=== PATIENT | female | born 1955 | race Caucasian/White ===

== ENCOUNTER 2021-05-11 17:09 | Outpatient (CLI) | payer MEDICARE, OTHER | END 2021-05-11 17:10 | disposition critical access hospital (66) | LOC: EMS 17:09 | DX: R41.82 Altered mental status, unspecified (principal) | CPT/HCPCS: A0425; A0427 ==

== ENCOUNTER 2021-05-11 17:30 | Emergency (ER) | payer MEDICARE, OTHER ==
[2021-05-11] MEDS ORDERED: SODIUM CHLORIDE 0.9% 1,000 ML IV STA (17:39)
--- NOTE | 2021-05-11 17:44 | ED Physician Documentation ---
PD HPI ALTERED MENTAL STATUS - Stated complaint Stated Complaint: AMS - History obtained from History obtained from: EMS - Additional information Additional information: Reportedly had some sort of episode last night where she could not get off the toilet. Then subsequently went to bed alone and she has not been seen since last night. Was found by family on the floor in her bedroom this evening less responsive than normal. Blood sugar was around 290 for EMS. There was no report of trauma or concern for drug/alcohol use. Patient unable to give a history for the most part due to altered mental status. arrived a few minutes after initial evaluation and gave further history. She had been vomiting all night. No specific complaints of headache. She has a history of diabetes and diabetic nephropathy albeit never bad enough that she needed to see a site supervisor. Review of Systems Unable to obtain: Confused PD PAST MEDICAL HISTORY - Present Medications Home Medications: Ambulatory Orders Medication Instructions Recorded Confirmed Atorvastatin [Lipitor] 20 mg ORAL HS 05/11/21 05/11/21 Gabapentin [Neurontin] 300 mg PO BID 05/11/21 05/11/21 Lisinopril [Zestril] 10 mg PO DAILY 05/11/21 05/11/21 Sitagliptin Phos/Metformin HCl 1 each PO BID 05/11/21 05/11/21 [Janumet Xr 50-1,000 mg Tablet] - Allergies Allergies/Adverse Reactions: Allergies Allergy/AdvReac Type Severity Reaction Status Date / Time No Known Drug Allergies Allergy Verified 05/11/21 18:29 PD ED PE NORMAL - Vitals Vital signs reviewed: Yes - General General: Other (She opens her eyes to verbal stimulus and is quite confused.) - HEENT HEENT: Other (Dilated pupils, symmetric, Very dry mucous membranes) - Neck Neck: Supple, no meningeal sign, No bony TTP - Cardiac Cardiac: RRR, No murmur - Respiratory Respiratory: No respiratory distress, Clear bilaterally - Abdomen Abdomen: Normal bowel sounds, Soft, Non tender - Female Female : Other (Pelvic organ/vaginal prolapse noted by RN during Castellon placement, easily reducible.) - Back Back: No CVA TTP, No spinal TTP - Derm Derm: Normal color, Warm and dry - Extremities Extremities: No deformity, No tenderness to palpate, Normal ROM s pain - Neuro Eye Opening: To Voice Motor: Obeys Commands (Follows commands with strength appropriate to her mental status in all 4 extremities) Verbal: Confused GCS Score: 13 Results - Vitals Vitals: Vital Signs - 24 hr 05/11/21 05/11/21 05/11/21 17:49 18:15 18:30 Temperature 29 C L 29.2 C L 29.3 C L Heart Rate 82 88 81 Respiratory 18 17 16 Rate Blood Pressure 79/53 L 102/59 L 72/40 L O2 Saturation 100 100 91 L 05/11/21 05/11/21 05/11/21 18:55 19:19 19:36 Temperature 29.7 C L 30.1 C L 39.7 C H Heart Rate 114 H 67 106 H Respiratory 14 14 14 Rate Blood Pressure 82/51 L 112/64 82/51 L O2 Saturation 100 100 100 05/11/21 05/11/21 05/11/21 19:37 20:09 20:30 Temperature 30.2 C L 30.9 C L 31.5 C L Heart Rate 67 76 75 Respiratory 12 14 13 Rate Blood Pressure 112/55 L 115/62 106/57 L O2 Saturation 100 100 100 Oxygen O2 Source Nasal cannula - EKG (time done) 1930 Rate: Rate (enter#) (68) Rhythm: NSR [place]: Normal Intervals: Prolonged [place], Prolonged QT QRS: Low voltage Ischemia: Normal ST segments - Labs Labs: Laboratory Tests 05/11/21 05/11/21 05/11/21 17:45 17:45 17:45 WBC 22.0 H RBC 4.04 L Hgb 11.4 L Hct 39.7 MCV 98.3 MCH 28.2 MCHC 28.7 L RDW 13.2 Plt Count 368 MPV 10.1 Neut # (Auto) 16.9 H Lymph # (Auto) 3.1 [place] # (Auto) 1.5 H Eos # (Auto) 0.0 Baso # (Auto) 0.1 Absolute Nucleated RBC 0.00 Band Neuts % (Manual) Not Reportable Abnorm Lymph % (Manual) Not Reportable Nucleated RBC % 0.0 Neutrophils # (Manual) Not Reportable Lymphocytes # (Manual) Not Reportable Monocytes # (Manual) Not Reportable Eosinophils # (Manual) Not Reportable Basophils # (Manual) Not Reportable Differential Comment MANUAL=AUTO DIFF Manual Slide Review Indicated Platelet Estimate NORMAL (130-450,000) Platelet Morphology NORMAL APPEARANCE RBC Morph Micro Appear NORMAL APPEARANCE PT INR APTT Bld Gas Analysis Time Sample Site ABG pH ABG pCO2 ABG pO2 ABG HCO3 ABG Total CO2 ABG O2 Saturation ABG Base Excess [place] Test VBG pH VBG pCO2 VBG pO2 VBG HCO3 VBG Total CO2 VBG O2 Saturation VBG Base Excess O2 Delivery Device O2 Liters/Min Sodium 140 Potassium 4.7 Chloride 93 L Carbon Dioxide 6 L* Anion Gap 41.0 H BUN 78 H Creatinine 6.1 H Estimated GFR (MDRD) 7 L Glucose 325 H Lactic Acid > 10.0 H* Calcium 9.0 Total Bilirubin 1.2 H AST 27 ALT 20 Alkaline Phosphatase 66 Total Creatine Kinase 132 Total Protein 7.5 Albumin 3.6 Globulin 3.9 Albumin/Globulin Ratio 0.9 L TSH Urine Color Urine Clarity Urine pH Ur Specific [place] Urine Protein Urine Glucose (UA) Urine Ketones Urine Occult Blood Urine Nitrite Urine Bilirubin Urine Urobilinogen Ur Leukocyte Esterase Urine RBC Urine WBC Urine WBC Clumps Ur Epithelial Cells Ur Squamous Epith Cells Urine Bacteria Ur Microscopic Review Urine Culture Comments Nasal Adenovirus (PCR) Nasal B. parapertussis DNA (PCR) Nasal Coronavir 229E PCR Nasal Coronavir HKU1 PCR Nasal Coronavir NL63 PCR Nasal Coronavir OC43 PCR Nasal Enterovir/Rhinovir PCR Nasal Influenza B PCR Nasal Influenza A PCR Nasal Parainfluen 1 PCR Nasal Parainfluen 2 PCR Nasal Parainfluen 3 PCR Nasal Parainfluen 4 PCR Nasal RSV (PCR) Nasal B.pertussis DNA PCR Nasal C.pneumoniae (PCR) Garth Human Metapneumo PCR Nasal M.pneumoniae (PCR) Nasal SARS-CoV-2 (PCR) Salicylates < 6.0 Urine Opiates Screen Ur Oxycodone Screen Urine Methadone Screen Ur Propoxyphene Screen Acetaminophen < 10 L Ur Barbiturates Screen Ur Tricyclics Screen Ur Phencyclidine Scrn Ur Amphetamine Screen U Methamphetamines Scrn U Benzodiazepines Scrn Urine Cocaine Screen U Cannabinoids Screen Ethyl Alcohol < 5.0 05/11/21 05/11/21 05/11/21 17:45 17:45 17:45 WBC RBC Hgb Hct MCV MCH MCHC RDW Plt Count MPV Neut # (Auto) Lymph # (Auto) [place] # (Auto) Eos # (Auto) Baso # (Auto) Absolute Nucleated RBC Band Neuts % (Manual) Abnorm Lymph % (Manual) Nucleated RBC % Neutrophils # (Manual) Lymphocytes # (Manual) Monocytes # (Manual) Eosinophils # (Manual) Basophils # (Manual) Differential Comment Manual Slide Review Platelet Estimate Platelet Morphology RBC Morph Micro Appear PT INR APTT Bld Gas Analysis Time Sample Site ABG pH ABG pCO2 ABG pO2 ABG HCO3 ABG Total CO2 ABG O2 Saturation ABG Base Excess [place] Test VBG pH 6.636 L VBG pCO2 36.1 L VBG pO2 85.2 H VBG HCO3 3.8 L VBG Total CO2 4.9 L VBG O2 Saturation 90.4 H VBG Base Excess -33.4 L O2 Delivery Device O2 Liters/Min Sodium Potassium Chloride Carbon Dioxide Anion Gap BUN Creatinine Estimated GFR (MDRD) Glucose Lactic Acid Calcium Total Bilirubin AST ALT Alkaline Phosphatase Total Creatine Kinase Total Protein Albumin Globulin Albumin/Globulin Ratio TSH 1.63 Urine Color YELLOW Urine Clarity HAZY Urine pH 6.0 Ur Specific [place] 1.020 Urine Protein 30 H Urine Glucose (UA) NEGATIVE Urine Ketones 15 H Urine Occult Blood SMALL H Urine Nitrite NEGATIVE Urine Bilirubin NEGATIVE Urine Urobilinogen 0.2 (NORMAL) Ur Leukocyte Esterase LARGE H Urine RBC TNTC H Urine WBC >25 H Urine WBC Clumps PRESENT Ur Epithelial Cells RARE Transitional Ur Squamous Epith Cells NONE SEEN Urine Bacteria Many H Ur Microscopic Review INDICATED Urine Culture Comments INDICATED Nasal Adenovirus (PCR) Nasal B. parapertussis DNA (PCR) Nasal Coronavir 229E PCR Nasal Coronavir HKU1 PCR Nasal Coronavir NL63 PCR Nasal Coronavir OC43 PCR Nasal Enterovir/Rhinovir PCR Nasal Influenza B PCR Nasal Influenza A PCR Nasal Parainfluen 1 PCR Nasal Parainfluen 2 PCR Nasal Parainfluen 3 PCR Nasal Parainfluen 4 PCR Nasal RSV (PCR) Nasal B.pertussis DNA PCR Nasal C.pneumoniae (PCR) Garth Human Metapneumo PCR Nasal M.pneumoniae (PCR) Nasal SARS-CoV-2 (PCR) Salicylates Urine Opiates Screen NEGATIVE Ur Oxycodone Screen NEGATIVE Urine Methadone Screen NEGATIVE Ur Propoxyphene Screen NEGATIVE Acetaminophen Ur Barbiturates Screen NEGATIVE Ur Tricyclics Screen NEGATIVE Ur Phencyclidine Scrn NEGATIVE Ur Amphetamine Screen NEGATIVE U Methamphetamines Scrn NEGATIVE U Benzodiazepines Scrn NEGATIVE Urine Cocaine Screen NEGATIVE U Cannabinoids Screen NEGATIVE Ethyl Alcohol 05/11/21 05/11/21 05/11/21 17:47 18:45 20:15 WBC RBC Hgb Hct MCV MCH MCHC RDW Plt Count MPV Neut # (Auto) Lymph # (Auto) [place] # (Auto) Eos # (Auto) Baso # (Auto) Absolute Nucleated RBC Band Neuts % (Manual) Abnorm Lymph % (Manual) Nucleated RBC % Neutrophils # (Manual) Lymphocytes # (Manual) Monocytes # (Manual) Eosinophils # (Manual) Basophils # (Manual) Differential Comment Manual Slide Review Platelet Estimate Platelet Morphology RBC Morph Micro Appear PT 13.1 H INR 1.2 APTT 31.9 Bld Gas Analysis Time 2019 Sample Site A-LINE ABG pH 6.74 L* ABG pCO2 25 L* ABG pO2 233 H* ABG HCO3 3.3 L ABG Total CO2 4.0 L* ABG O2 Saturation 99 H ABG Base Excess -31.2 L [place] Test NOT APPLICABLE VBG pH VBG pCO2 VBG pO2 VBG HCO3 VBG Total CO2 VBG O2 Saturation VBG Base Excess O2 Delivery Device NASAL CANNULA O2 Liters/Min 4.00 Sodium Potassium Chloride Carbon Dioxide Anion Gap BUN Creatinine Estimated GFR (MDRD) Glucose Lactic Acid Calcium Total Bilirubin AST ALT Alkaline Phosphatase Total Creatine Kinase Total Protein Albumin Globulin Albumin/Globulin Ratio TSH Urine Color Urine Clarity Urine pH Ur Specific [place] Urine Protein Urine Glucose (UA) Urine Ketones Urine Occult Blood Urine Nitrite Urine Bilirubin Urine Urobilinogen Ur Leukocyte Esterase Urine RBC Urine WBC Urine WBC Clumps Ur Epithelial Cells Ur Squamous Epith Cells Urine Bacteria Ur Microscopic Review Urine Culture Comments Nasal Adenovirus (PCR) NOT DETECTED Nasal B. parapertussis DNA (PCR) NOT DETECTED Nasal Coronavir 229E PCR NOT DETECTED Nasal Coronavir HKU1 PCR NOT DETECTED Nasal Coronavir NL63 PCR NOT DETECTED Nasal Coronavir OC43 PCR NOT DETECTED Nasal Enterovir/Rhinovir PCR NOT DETECTED Nasal Influenza B PCR NOT DETECTED Nasal Influenza A PCR NOT DETECTED Nasal Parainfluen 1 PCR NOT DETECTED Nasal Parainfluen 2 PCR NOT DETECTED Nasal Parainfluen 3 PCR NOT DETECTED Nasal Parainfluen 4 PCR NOT DETECTED Nasal RSV (PCR) NOT DETECTED Nasal B.pertussis DNA PCR NOT DETECTED Nasal C.pneumoniae (PCR) NOT DETECTED Garth Human Metapneumo PCR NOT DETECTED Nasal M.pneumoniae (PCR) NOT DETECTED Nasal SARS-CoV-2 (PCR) NOT DETECTED Salicylates Urine Opiates Screen Ur Oxycodone Screen Urine Methadone Screen Ur Propoxyphene Screen Acetaminophen Ur Barbiturates Screen Ur Tricyclics Screen Ur Phencyclidine Scrn Ur Amphetamine Screen U Methamphetamines Scrn U Benzodiazepines Scrn Urine Cocaine Screen U Cannabinoids Screen Ethyl Alcohol - Rads (name of study) CT of the head Radiology: EMP read contemporaneously (NAD) Chest x-ray single view Radiology: EMP read contemporaneously Post line chest x-ray Radiology: EMP read contemporaneously (Right IJ CVC in appropriate position with tip over the distal SVC/cavoatrial junction; No pneumothorax) CT KUB Radiology: EMP read contemporaneously (KUB shows moderate hydronephrosis and hydroureter probably secondary to a 8 mm proximal ureterolith with also nonobstructing calcifications in the left pelvis and right renal, hepatic steatosis and left adrenal mass suggestive of adenoma) Procedures - General procedure General procedure: A right radial arterial line was placed after full prep using real-time ultrasound guidance without issue. Sutured into place with 4-0 nylon. Transduces well. Matches with BP cuff. - Central Line Central Line Preparation: Consent Obtained (verbal from ), Time out completed, Ultrasound used, Sterile prep and drape Central line location: Right IJ Central line type: Triple lumen Central line aftercare: Chlorhexidine disc placed, Secured, Placement confirmed, No pneumothorax, No complications, Bundle checklist complete, Pt tolerated well PD MEDICAL DECISION MAKING - ED course ED course: 65-year-old woman with history of diabetes presents with an acute illness starting yesterday. Was down all night and is now altered, hypotensive, hypothermic. She was attended to immediately and labs were drawn and she was given IV fluids. Work-up demonstrates severe septic shock with lactate greater than 10 and severe acute renal failure and acidosis with evidence of UTI. CT of the head and chest x-ray were negative and this was followed with a abdominal CT to rule out obstructive uropathy. A central line was placed and she was given greater than 30 mL/kg of crystalloid and broad-spectrum IV antibiotics co nsisting of cefepime, vancomycin, and Flagyl. Sofa score 10 points; [place] 2 score 26, both of these scores give her approximately 50% mortality. After her blood gas results, she was started on a bicarb drip, 150 mEq of sodium bicarb in D5 at a rate of 333 mL/h. A right radial art line was placed with full sterile prep which was transduced and ABG drawn. Multiple calls were placed to multiple facilities for ICU transfer capable of urology and interventional radiology consultation for likely nephrostomy. Eventually she was accepted to [facility] by Dr. Denzel Pittman and cobras were completed and she will be flown there given the critical nature of her illness. - Critical Care Time(min): 70 Time Includes: Direct patient care, Review records, Reassess patient, Document care, Coordinate care, Medical consult, Family consult for tx dec ( and son at bedside through most of the resuscitation.) Data interpretation: Labs, Pulse ox, ABG, CXR Procedures included in critical care time: Peripheral IV, Blood draw Procedures excluded from critical care time: Central IV, Arterial cannulation, EKG Departure - Departure Disposition: 02 Transfer Acute Care Hosp Clinical Impression: Septic shock, Obstructive uropathy, Acidosis UTI (urinary tract infection) Qualifiers: Urinary tract infection type: acute pyelonephritis Qualified Code(s): N10 - Acute pyelonephritis Altered mental status Qualifiers: Altered mental status type: delirium Qualified Code(s): R41.0 - Disorientation, unspecified ARF (acute renal failure) Qualifiers: Acute renal failure type: unspecified Qualified Code(s): N17.9 - Acute kidney failure, unspecified Hypothermia Qualifiers: Encounter type: initial encounter Qualified Code(s): T68.XXXA - Hypothermia, initial encounter Condition: Critical Discharge Date/Time: 05/11/21 21:04
[2021-05-11 17:50] LABS: MUDS CUTOFF CONCENTRATIONS CUTOFF CONC BELOW:
[2021-05-11 17:53] LABS: BASOPHILS # (AUTO) 0.1 10^3/uL (0.0-0.1); BASOPHILS % (AUTO) 0.4 %; EOSINOPHILS % (AUTO) 0.2 %; HCT - HEMATOCRIT 39.7 % (37.0-47.0); HGB - HEMOGLOBIN 11.4 g/dL (12.0-16.0); LYMPHOCYTES # (AUTO) 3.1 10^3/uL (1.5-3.5); LYMPHOCYTES % (AUTO) 14.1 %; MEAN CORPUSCULAR HEMOGLOBIN 28.2 pg (27.0-31.0); MEAN CORPUSCULAR HGB CONC 28.7 g/dL (32.0-36.0); MEAN CORPUSCULAR VOLUME 98.3 fL (81.0-99.0); MEAN PLATELET VOLUME 10.1 fL (7.9-10.8); MONOCYTES # (AUTO) 1.5 10^3/uL (0.0-1.0); MONOCYTES % (AUTO) 6.9 %; NEUTROPHILS # (AUTO) 16.9 10^3/uL (1.5-6.6); NEUTROPHILS % (AUTO) 76.6 %; PLT - PLATELET COUNT 368 10^3/uL (130-450); RED BLOOD COUNT 4.04 10^6/uL (4.20-5.40); RED CELL DISTRIBUTION WIDTH 13.2 % (12.0-15.0)
[2021-05-11 17:54] LABS: BILIRUBIN,URINE NEGATIVE (NEGATIVE); GLUCOSE, URINE (UA) NEGATIVE (NEGATIVE); KETONES,URINE (UA) 15 mg/dL (NEGATIVE); LEUKOCYTE ESTERASE, URINE LARGE (NEGATIVE); NITRITE,URINE NEGATIVE (NEGATIVE); OCCULT BLOOD,URINE SMALL (NEGATIVE); PROTEIN,URINE 30 mg/dL (NEGATIVE); UROBILINOGEN,URINE 0.2 (NORMAL) E.U./dL (NORMAL)
[2021-05-11 17:58] LABS: SLIDE REVIEW? Indicated
[2021-05-11 17:59] LABS: CLARITY,URINE HAZY (CLEAR)
[2021-05-11 18:04] LABS: AMPHETAMINE SCREEN,URINE NEGATIVE (NEGATIVE); BARBITURATE SCREEN,UR NEGATIVE (NEGATIVE); BENZODIAZEPINES SCREEN, URINE NEGATIVE (NEGATIVE); COCAINE SCREEN URINE NEGATIVE (NEGATIVE); METHADONE SCREEN, URINE NEGATIVE (NEGATIVE); METHAMPHETAMINES SCREEN, URINE NEGATIVE (NEGATIVE); OPIATE SCREEN, URINE NEGATIVE (NEGATIVE); OXYCODONE SCREEN, URINE NEGATIVE (NEGATIVE); PROPOXYPHENE SCREEN, URINE NEGATIVE (NEGATIVE); THC CANNABINOID SCREEN, URINE NEGATIVE (NEGATIVE); TRICYCLIC ANTIDEPRESSANT,URINE NEGATIVE (NEGATIVE)
[2021-05-11 18:08] LABS: LACTIC ACID, VENOUS > 10.0 mmol/L (0.5-2.2)
[2021-05-11 18:09] LABS: ACETAMINOPHEN < 10 ug/mL (10-30); ALBUMIN 3.6 g/dL (3.2-5.5); ALBUMIN/GLOBULIN RATIO 0.9 (1.0-2.2); ALKALINE PHOSPHATASE 66 IU/L (42-121); ALT ALANINE AMINOTRANSFERASE 20 IU/L (10-60); AST ASPARTATE AMINOTRANSFERASE 27 IU/L (10-42); BILIRUBIN,TOTAL 1.2 mg/dL (0.2-1.0); BUN - BLOOD UREA NITROGEN 78 mg/dL (6-20); CHLORIDE 93 mmol/L (101-111); CK- CREATINE KINASE 132 IU/L (22-269); CREATININE 6.1 mg/dL (0.4-1.0); ETOH - ETHANOL < 5.0 mg/dL; GFR - MDRD 7 (>89); GLUCOSE 325 mg/dL (70-100); POTASSIUM 4.7 mmol/L (3.5-5.0); SALICYLATE < 6.0 mg/dL; SODIUM 140 mmol/L (135-145); TOTAL PROTEIN 7.5 g/dL (6.7-8.2)
[2021-05-11 18:10] LABS: CARBON DIOXIDE - CO2 6 mmol/L (21-32)
--- NOTE | 2021-05-11 18:12 | CT Report ---
PROCEDURE: HEAD WO INDICATIONS: ams TECHNIQUE: Noncontrast 4.5 mm thick angled axial sections acquired from the foramen magnum to the vertex. For r adiation dose reduction, the following was used: automated exposure control, adjustment of mA and/or kV according to patient size. COMPARISON: None. FINDINGS: Image quality: Excellent. CSF spaces: Basal cisterns are patent. No extra-axial fluid collections. Ventricles are normal in size and shape. Brain: No midline shift. No intracranial masses or hemorrhage. Massey-white matter interface is norm al. Skull and face: Calvarium and visualized facial bones are intact, without suspicious lesions. Sinuses: Visualized sinuses and mastoids are clear. IMPRESSION: 1. No acute intracranial process. Reviewed by: Deborah Franklin MD on 05/11/2021 6:11 PM [facility] Approved by: Deborah Franklin MD on 05/11/2021 6:11 PM [facility] Station ID: [id number]
--- NOTE | 2021-05-11 18:13 | XRAY Report ---
PROCEDURE: Chest 1 View X-Ray INDICATIONS: ams TECHNIQUE: One view of the chest was acquired. COMPARISON: None FINDINGS: Surgical changes and devices: None. Lungs and pleura: No pleural effusions or pneumothorax. Lungs are clear. Mediastinum: Mediastinal contours appear normal. Heart size is mildly prominent. Bones and chest wall: No suspicious bony lesions. Overlying soft tissues appear unremarkable. IMPRESSION: No acute pulmonary process. Reviewed by: Deborah Franklin MD on 05/11/2021 6:12 PM [facility] Approved by: Deborah Franklin MD on 05/11/2021 6:12 PM [facility] Station ID: [id number]
[2021-05-11] MEDS ORDERED: VANCOMYCIN INJ 1.25 GM in SODIUM CHLORIDE 0.9% 250 ML IV STA (18:15)
[2021-05-11] MEDS ORDERED: LACTATED RINGERS IV STA (18:15)
[2021-05-11] MEDS ORDERED: CEFEPIME 2 GM in SODIUM CHLORIDE 0.9% MINIBAG 100 ML IV STA (18:15)
[2021-05-11] MEDS ORDERED: metroNIDAZOLE 500 MG/100 ML 500 MG/100 ML BAG IV STA (18:15)
[2021-05-11 18:18] LABS: RBC,URINE TNTC /HPF (0-5); WBC CLUMPS,URINE PRESENT; WBC,URINE >25 /HPF (0-5)
[2021-05-11 18:19] LABS: BACTERIA,URINE Many /HPF (None Seen); EPITHELIAL CELLS,UR RARE Transitional /HPF (<= Few); SQUAMOUS EPITHELIAL CELL,UR NONE SEEN (<= Few)
[2021-05-11 18:36] LABS: PLATELET ESTIMATE, MANUAL NORMAL (130-450,000) (NORMAL); PLATELET MORPHOLOGY NORMAL APPEARANCE (NORMAL); RBC MORPHOLOGY (MULTIPLE) NORMAL APPEARANCE (NORMAL)
[2021-05-11 18:37] LABS: DIFFERENTIAL COMMENT MANUAL=AUTO DIFF
[2021-05-11] MEDS ORDERED: VANCOMYCIN 1 GM VIAL ONE (18:44)
[2021-05-11 18:45] LABS: B. PARAPERTUSSIS- RESP PCR PAN NOT DETECTED; B. PERTUSSIS- RESP PCR PANEL NOT DETECTED; C. PNEUMONIAE- RESP PCR PANEL NOT DETECTED; CORONAVIRUS 229E-RESP PCR NOT DETECTED; CORONAVIRUS HKU1-RESP PCR NOT DETECTED; CORONAVIRUS NL63-RESP PCR NOT DETECTED; CORONAVIRUS OC43-RESP PCR NOT DETECTED; HUMAN METAPNEUMOVIRUS NOT DETECTED; INFLUENZA A- RESP PCR PANEL NOT DETECTED; INFLUENZA B - RESP PCR PANEL NOT DETECTED; M. PNEUMONIAE- RESP PCR PANEL NOT DETECTED; PARAINFLUENZA VIRUS 1 NOT DETECTED; PARAINFLUENZA VIRUS 2 NOT DETECTED; PARAINFLUENZA VIRUS 3 NOT DETECTED; PARAINFLUENZA VIRUS 4 NOT DETECTED; RHINOVIRUS/ENTEROVIRUS NOT DETECTED; RSV- RESP PCR PANEL NOT DETECTED; SARS-CoV-2 -RESP PCR PANEL NOT DETECTED
[2021-05-11 18:57] LABS: INR 1.2 (0.8-1.2); PT - PROTHROMBIN TIME 13.1 secs (9.9-12.6)
[2021-05-11 19:04] LABS: PARTIAL THROMBOPLASTIN TIME 31.9 secs (24.9-33.3)
--- NOTE | 2021-05-11 19:09 | XRAY Report ---
PROCEDURE: Chest for Line Placement INDICATIONS: RIJ CVC TECHNIQUE: One view of the chest was acquired. COMPARISON: Chest x-ray 05/11/2021 FINDINGS: Surgical changes and devices: Right-sided central venous catheters placed with distal tip projecting over the distal SVC/right atrial junction. Lungs and pleura: No pleural effusions or pneumothorax. Lungs are clear. Mediastinum: Mediastinal contours appear normal. Heart size is normal. Bones and chest wall: No suspicious bony lesions. Overlying soft tissues appear unremarkable. IMPRESSION: Right-sided central venous catheter in appropriate position as above. Reviewed by: Deborah Franklin MD on 05/11/2021 7:08 PM PST Approved by: Deborah Franklin MD on 05/11/2021 7:08 PM PST Station ID: [id number]
--- NOTE | 2021-05-11 19:24 | CT Report ---
PROCEDURE: Abdomen/Pelvis WO INDICATIONS: septic shock unknwn source TECHNIQUE: Noncontrast 5 mm thick sections acquired from the diaphragms to the symphysis. 5 mm coronal and sagi ttal reformats were then performed. For radiation dose reduction, the following was used: automated exposure control, adjustment of mA and/or kV according to patient size. COMPARISON: None. FINDINGS: Image quality: Excellent. ABDOMEN: Lung bases: Lung bases are clear. Heart size is normal. Solid organs: Liver and spleen are normal in size. Hepatic steatosis is present. Gallbladder is with in normal limits. Pancreas is normal in contours. There is a 1.7 cm left adrenal mass with Hounsfield units measuring -6. There is asymmetric atrophy of the left kidney. There is hydronephrosis and proximal hydroureter. The re is a proximal ureteral calculus measuring 0.8 mm, Hounsfield units 676. In addition, there is an 8 mm dependent pelvic calcification Hounsfield units 575. The right kidney is nonobstructive. There is a linear calcification within the central collecting system measuring 10 mm, Hounsfield units 303. Peritoneum and bowel: Unenhanced bowel loops demonstrate normal wall thickness and caliber. No free fluid or air. Nodes and vessels: No retroperitoneal or mesenteric adenopathy by size criteria. Aorta and inferior vena cava are normal in caliber. Miscellaneous: No ventral hernias. PELVIS: Genitourinary: Bladder is collapsed with a catheter. Nondependent air is present. Miscellaneous: No inguinal hernias or adenopathy. Bones: No suspicious bony lesions. No vertebral body compression fractures. IMPRESSION: Asymmetric left renal atrophy with moderate hydronephrosis and proximal hydroureter secondary to prox imal ureteral calculus. Nonobstructing left pelvic calcification as well as central right renal calcification. Hepatic steatosis. Left adrenal mass with Hounsfield units most suggestive of adenoma. Reviewed by: Deborah Franklin MD on 05/11/2021 7:22 PM PST Approved by: Deborah Franklin MD on 05/11/2021 7:22 PM PST Station ID: [id number]
[2021-05-11 19:35] LABS: VBG PCO2 36.1 mmHg (41-51); VBG PH 6.636 (7.31-7.41); VBG PO2 85.2 mmHg (25-47)
[2021-05-11 19:36] LABS: VBG BASE EXCESS -33.4 mmol/L (-2 - +2); VBG HCO3 3.8 mmol/L (23-28); VBG OXYGEN SATURATION 90.4 % (60-80); VBG TOTAL CO2 4.9 mmol/L (24-29)
[2021-05-11] MEDS ORDERED: SODIUM BICARBONATE 150 MEQ in DEXTROSE 5% 1,000 ML IV SCH (20:00)
[2021-05-11] MEDS ORDERED: SODIUM BICARBONATE 8.4% 50 MEQ/50 ML VIAL ONE (20:00)
[2021-05-11] MEDS ORDERED: DEXTROSE 5% 1,000 ML IV ONE (20:01)
[2021-05-11 20:21] LABS: ABG BASE EXCESS -31.2 mmol/L (-2.0-3.0); ABG HCO3 3.3 mmol/L (22.0-26.0); ABG OXYGEN SATURATION 99 % (94-98)
[2021-05-11 20:23] LABS: ABG PH 6.74 (7.35-7.45)
[2021-05-11 20:24] LABS: ABG PCO2 25 mmHg (34-45); ABG PO2 233 mmHg (80-100)
[2021-05-11 21:02] VITALS: BP 106/57
== END 2021-05-11 21:04 | disposition short-term general hospital (02) ==
LOC: EDUNIT# → ED 17:30
DX: A41.9 Sepsis, unspecified organism (principal); R65.21 Severe sepsis with septic shock; N10 Acute pyelonephritis; N17.9 Acute kidney failure, unspecified; N13.6 Pyonephrosis; T68.XXXA Hypothermia, initial encounter; E11.21 Type 2 diabetes mellitus with diabetic nephropathy; Z79.84 Long term (current) use of oral hypoglycemic drugs; Z96.41 Presence of insulin pump (external) (internal); Z20.822 Contact with and (suspected) exposure to COVID-19; E27.9 Disorder of adrenal gland, unspecified; N81.10 Cystocele, unspecified
CPT/HCPCS: 36415; 36556; 36620; 51702; 70450; 71045; 74176; 80053; 80306; 80307; 81001; 82550; 82803; 83605; 84443; 85025; 85610; 85730; 87040; 87086; 87150; 87181; 87631; 93005; 96361; 96365; 96366; 96368; 99285; 99291; G0480; J3370; J7120; 0202U; 80320; 80329; 81003

== ENCOUNTER 2021-06-28 12:36 | Outpatient (CLI) | payer MEDICARE, OTHER ==
--- NOTE | 2021-06-28 13:31 | DEXA Report ---
PROCEDURE: Dexa Spine and/or Hip INDICATIONS: POST MENOPAUSAL TECHNIQUE: Dual energy x-ray absorptiometry (DXA) was performed on a [employer] System. Regions measur ed are the AP Spine, femoral neck, and if needed forearm. COMPARISON: None. FINDINGS: Lumbar Spine: Bone Mineral Density 1.708 g/cm/cm,T score 4.4, normal Left Hip: Bone Mineral Density 1.035 g/cm/cm,T score 0.2, normal Left Femoral Neck: Bone Mineral Density 1.000 g/cm/cm, T score -0.3, normal (T score greater or equal to -1.0: NORMAL) (T score from -1.1 to -2.4: OSTEOPENIA) (T score less than or equal to -2.5 to: OSTEOPOROSIS) Impression: Normal bone mineral density. Patients with diagnosis of osteoporosis or osteopenia should have regular bone mineral density assess ment. For those eligible for Medicare, routine testing is allowed once every 2 years. Testing frequ ency can be increased for patients who have rapidly progressing disease or for those who are receivin g medical therapy to restore bone mass. Reviewed by: Carri Conti MD, PhD on 06/28/2021 1:30 PM PDT Approved by: Carri Conti MD, PhD on 06/28/2021 1:30 PM PDT Station ID: [id number]
== END 2021-06-28 12:37 | disposition home or self-care (01) ==
LOC: DI 12:36
PROVIDERS: ATTEND Internal Medicine
DX: Z78.0 Asymptomatic menopausal state (principal)

== ENCOUNTER 2022-11-15 08:00 | Outpatient (CLI) | payer MEDICARE, OTHER | END 2022-11-15 23:59 | disposition home or self-care (01) | LOC: LAB.N 08:00 | PROVIDERS: ATTEND Physician Assistant Medical | DX: N30.00 Acute cystitis without hematuria (principal) | CPT/HCPCS: 87077; 87086; 87181 ==

== ENCOUNTER 2023-09-24 15:36 | Outpatient (CLI) | payer MEDICARE, OTHER | END 2023-09-24 23:59 | disposition critical access hospital (66) | LOC: EMS 15:36 | DX: R41.82 Altered mental status, unspecified (principal); R50.9 Fever, unspecified | CPT/HCPCS: A0425; A0427 ==

== ENCOUNTER 2023-09-24 16:09 | Emergency (ER) | payer MEDICARE, OTHER ==
[2023-09-24 16:41] LABS: BASOPHILS % (AUTO) 0.2 %; EOSINOPHILS % (AUTO) 0.1 %; HCT - HEMATOCRIT 37.2 % (37.0-47.0); LYMPHOCYTES # (AUTO) 1.5 10^3/uL (1.5-3.5); LYMPHOCYTES % (AUTO) 10.4 %; MEAN CORPUSCULAR HEMOGLOBIN 28.3 pg (27.0-31.0); MEAN CORPUSCULAR HGB CONC 32.3 g/dL (32.0-36.0); MEAN CORPUSCULAR VOLUME 87.7 fL (81.0-99.0); MEAN PLATELET VOLUME 9.6 fL (7.9-10.8); NEUTROPHILS # (AUTO) 11.9 10^3/uL (1.5-6.6); PLT - PLATELET COUNT 281 10^3/uL (130-450); RED BLOOD COUNT 4.24 10^6/uL (4.20-5.40); RED CELL DISTRIBUTION WIDTH 14.1 % (12.0-15.0); WHITE BLOOD COUNT 14.6 x10^3/uL (4.8-10.8)
[2023-09-24 16:55] LABS: ALBUMIN 3.9 g/dL (3.2-5.5); ALBUMIN/GLOBULIN RATIO 1.1 (1.0-2.2); BILIRUBIN,TOTAL 0.5 mg/dL (0.2-1.0); CREATININE 1.2 mg/dL (0.6-1.3); TOTAL PROTEIN 7.4 g/dL (6.4-8.9)
[2023-09-24 17:09] LABS: TROPONIN I HIGH SENSITIVITY 35.6 ng/L (2.3-14.8)
--- NOTE | 2023-09-24 17:18 | ED Physician Documentation ---
History of Present Illness - Stated complaint Stated Complaint: GENERAL WEAKNESS - Chief complaint Chief Complaint: General - Additonal information Additional information: 68 yo extensive hx of kidney stone and had a stent placed yesterday with [facility] urology and was told to remove left kidney stint today and was unable to pull it out. Has had about 2 stints due to kidney stones. Now feeling weak, generalized malaise, fevers, chills, pain to left flank region. Mild nausea no emesis. No diarrhea, no cardiac hx. Able to void without difficulty No chest pain or shortness of breath PD PAST MEDICAL HISTORY - Past Medical History Past Medical History: Yes Cardiovascular: Hypertension, High cholesterol Respiratory: None Neuro: Peripheral neuropathy, Tremors Endocrine/Autoimmune: Type 2 diabetes GI: None REGIONAL TRANSFER LIAISON: None : None HEENT: None Psych: None Musculoskeletal: None Derm: None - Past Surgical History Past Surgical History: No - Present Medications Home Medications: Ambulatory Orders Medication Instructions Recorded Confirmed Atorvastatin [Lipitor] 20 mg ORAL HS 05/11/21 09/24/23 Gabapentin [Neurontin] 300 mg PO BID 05/11/21 09/24/23 Sitagliptin Phos/Metformin HCl 1 each PO BID 05/11/21 09/24/23 [Janumet Xr 50-1,000 mg Tablet] Losartan Potassium 25 mg PO DAILY 09/24/23 09/24/23 Propranolol [Inderal] 10 mg PO BID 09/24/23 09/24/23 oxyCODONE [Roxicodone] 5 mg PO Q4-6H 09/24/23 09/24/23 - Allergies Allergies/Adverse Reactions: Allergies Allergy/AdvReac Type Severity Reaction Status Date / Time No Known Drug Allergies Allergy Verified 09/24/23 16:24 - Social History Does the pt smoke?: No Smoking Status: Never smoker Does the pt drink ETOH?: No Does the pt have substance abuse?: No - Immunizations Immunizations are current?: Yes - POLST Patient has POLST: No PD ED PE NORMAL - Vitals Vital signs reviewed: Yes - General General: Alert and oriented X 3, No acute distress, Well developed/nourished - HEENT HEENT: Atraumatic - Cardiac Cardiac: RRR - Respiratory Respiratory: No respiratory distress, Clear bilaterally - Abdomen Abdomen: Normal bowel sounds, Soft, Other (Suprapubic pelvic tenderness) - Back Back: Other (Left CVA tenderness) - Derm Derm: Normal color, Warm and dry, No rash - Extremities Extremities: No edema, No calf tenderness / cord PD ED PE EXPANDED - Female Female : Enlarged uterus, Cultures sent, Cook Night present (NILAY Carmona present), Other (large prolapsed uterus) Results - Vitals Vitals: Vital Signs - 24 hr 09/24/23 09/24/23 09/24/23 16:16 18:24 19:10 Temperature 38.0 C H 37.4 C Heart Rate 97 99 102 H Respiratory 23 22 23 Rate Blood Pressure 181/92 H 136/77 H 140/75 H O2 Saturation 98 94 97 If not protocol : Oxygen Flow, liters/minute 09/24/23 21:00 Temperature Heart Rate 88 Respiratory 17 Rate Blood Pressure 101/57 L O2 Saturation 95 If not protocol 2 : Oxygen Flow, liters/minute Oxygen O2 Source Nasal cannula - EKG (time done) 1621 EKG releavant findings:: EKG personally interpreted by author of this note. Relevant findings are: Rate: Rate (enter#) (93) Rhythm: NSR [place]: Normal Intervals: Normal ID QRS: Normal Ischemia: Other (bordeline T wave abnormalities in the anterior leads) Computer interpretation: Agree with computer - Labs Labs: Laboratory Tests 09/24/23 09/24/23 09/24/23 16:37 16:37 17:38 WBC 14.6 H RBC 4.24 Hgb 12.0 Hct 37.2 MCV 87.7 MCH 28.3 MCHC 32.3 RDW 14.1 Plt Count 281 MPV 9.6 Neut # (Auto) 11.9 H Lymph # (Auto) 1.5 Trinity # (Auto) 1.0 Eos # (Auto) 0.0 Baso # (Auto) 0.0 Absolute Nucleated RBC 0.00 Nucleated RBC % 0.0 Sodium 132 L Potassium 4.0 Chloride 97 L Carbon Dioxide 25 Anion Gap 10.0 BUN 17 Creatinine 1.2 Estimated GFR (MDRD) 45 L Glucose 268 H Lactic Acid 2.1 Calcium 9.0 Total Bilirubin 0.5 AST 22 ALT 26 Alkaline Phosphatase 47 Troponin I High Sens 35.6 H* Total Protein 7.4 Albumin 3.9 Globulin 3.5 Albumin/Globulin Ratio 1.1 Lipase 45 Urine Color Urine Clarity Urine pH Ur Specific Cope Urine Protein Urine Glucose (UA) Urine Ketones Urine Occult Blood Urine Nitrite Urine Bilirubin Urine Urobilinogen Ur Leukocyte Esterase Urine RBC Urine WBC Ur Epithelial Cells Ur Squamous Epith Cells Amorphous Sediment Urine Bacteria Urine Yeast Ur Microscopic Review Urine Culture Comments 09/24/23 09/24/23 18:20 20:25 WBC RBC Hgb Hct MCV MCH MCHC RDW Plt Count MPV Neut # (Auto) Lymph # (Auto) Trinity # (Auto) Eos # (Auto) Baso # (Auto) Absolute Nucleated RBC Nucleated RBC % Sodium Potassium Chloride Carbon Dioxide Anion Gap BUN Creatinine Estimated GFR (MDRD) Glucose Lactic Acid Calcium Total Bilirubin AST ALT Alkaline Phosphatase Troponin I High Sens 54.8 H* Total Protein Albumin Globulin Albumin/Globulin Ratio Lipase Urine Color YELLOW Urine Clarity CLOUDY Urine pH 6.0 Ur Specific Cope 1.025 Urine Protein 100 H Urine Glucose (UA) 100 H Urine Ketones 15 H Urine Occult Blood LARGE H Urine Nitrite NEGATIVE Urine Bilirubin NEGATIVE Urine Urobilinogen 0.2 (NORMAL) Ur Leukocyte Esterase MODERATE H Urine RBC 11-25 H Urine WBC >25 H Ur Epithelial Cells FEW Transitional Ur Squamous Epith Cells NONE SEEN Amorphous Sediment Few Urine Bacteria Few Urine Yeast PRESENT Ur Microscopic Review INDICATED Urine Culture Comments INDICATED - Rads (name of study) Abdomen pelvis with contrast Relevant Findings:: Final report received, EMP independent interpretation of test, Other (Left kidney intracapsular hematoma, Moderate left hydroureteronephrosis with wall thickening and surrounding stranding bladder wall thickening presentNonobstructing calcification in the left renal pelvis measuring 6.3 mmComplete uterine prolapse) PD Medical Decision Making - ED course ED course: 68-year-old female presents emergency department for generalized malaise, fevers chills and left CVA tenderness. Upon arrival to the emergency department patient was found to be febrile up to 38.0. Originally hypertensive 181/92 and heart rate 97. Labs are complete for further evaluation she does have leukocytosis, WBC 14.6 mild hyponatremia 132 initial troponin was 35.6 patient denies any chest pain or shortness of breath no EKG changes or signs of acute coronary syndrome. Urinalysis is positive for leukocytes and urine was sent for further cultures. 2 sets of blood cultures were collected patient's lactate is not elevated. Patient said that she was unable to remove her stent at home I visualized the urethral stent and was able to remove it without any difficulty.. CT abdomen pelvis was complete with contrast for further evaluation and she has a left kidney intracapsular hematoma when I spoke with patient's urologist this is an old finding she also has moderate left hydroureteronephrosis with wall thickening and surrounding stranding bladder wall thickening is present and she has a nonobstructing calcification within the left renal pelvis measuring [address] scan reveals that she has a complete uterine prolapse and I also visualize this on my pelvic exam with the patient while helping the RN do a straight cath. Patient received a total of 2 L of IV fluids repeat troponin came back unfortunately elevated to 54.8. Patient continues to decline any shortness of breath any chest pain. I spoke with on-call telemetry hospitalist and he is concerned that patient may need a nephrostomy tube I spoke with patient's urologist Dr. Fallon who does not believe that patient needs a nephrostomy tube and at this point in time to treat for pyelonephritis patient was started on Rocephin and he feels that patient is safe to be kept here in a critical access hospital. I also spoke with Dr. Winslow our on-call urologist who feels comfortable keeping the patient here but unfortunately given patient's elevated troponins should reach out to cardiology. I spoke with [facility] cardiology as patient is established with their hospital and unfortunately they are recommending that patient be transferred but they do not have any beds until late tomorrow afternoon or Satur afternoon. It is likely that patient be boarding here overnight I gave report to oncoming ER physician who will further manage patient's care due to change of shift. Departure - Departure Clinical Impression: Sepsis, Pyelonephritis Forms: PCP List
[2023-09-24] MEDS ORDERED: iohexoL-300 100 ML VIAL ONE (17:25)
[2023-09-24] MEDS: SODIUM CHLORIDE 0.9% 1,000 ML IV ONE ×2 (17:26→21:18)
[2023-09-24] MEDS: ACETAMINOPHEN 500 MG TABLET PO STA (18:29)
[2023-09-24 18:32] LABS: BILIRUBIN,URINE NEGATIVE (NEGATIVE); GLUCOSE, URINE (UA) 100 mg/dL (NEGATIVE); KETONES,URINE (UA) 15 mg/dL (NEGATIVE); LEUKOCYTE ESTERASE, URINE MODERATE (NEGATIVE); NITRITE,URINE NEGATIVE (NEGATIVE); OCCULT BLOOD,URINE LARGE (NEGATIVE); PROTEIN,URINE 100 mg/dL (NEGATIVE); UROBILINOGEN,URINE 0.2 (NORMAL) E.U./dL (NORMAL)
[2023-09-24 18:34] LABS: CLARITY,URINE CLOUDY (CLEAR)
[2023-09-24 18:40] LABS: AMORPHOUS SEDIMENT,UR Few /LPF; BACTERIA,URINE Few /HPF (None Seen); EPITHELIAL CELLS,UR FEW Transitional /HPF (<= Few); SQUAMOUS EPITHELIAL CELL,UR NONE SEEN (<= Few); WBC,URINE >25 /HPF (0-5); YEAST,URINE PRESENT
[2023-09-24] MEDS: iohexoL-300 100 ML VIAL IVP ONE (19:07)
--- NOTE | 2023-09-24 19:31 | CT Report ---
PROCEDURE: Abdomen/Pelvis W INDICATIONS: Recent left kidney stint, wont come out, CONTRAST: 100ml [id number] TECHNIQUE: After the administration of intravenous contrast, a CT scan of the abdomen and pelvis was performed. Images were recorded and evaluated at appropriate window settings. Reformats: coronal and sagittal. F or radiation dose reduction, the following was used: automated exposure control, adjustment of mA and /or kV according to patient size. COMPARISON: 12/09/2021 FINDINGS: Image quality: Diagnostic. Lower chest: Linear atelectasis versus scarring at the lung bases. Liver: No solid mass. Hepatic steatosis. Gallbladder: Contracted, otherwise unremarkable Biliary tree: No intrahepatic or extrahepatic dilation, accounting for age. Spleen: No splenomegaly. Pancreas: No pancreatic ductal dilation. Adrenals: Stable left adrenal nodule measuring 1.7 cm. Kidneys and ureters: Findings concerning for intracapsular hematoma involving the left kidney with co mpression of the right kidney. There is moderate right hydroureteronephrosis. Mild gas within the col lecting system. Wall thickening of the collecting system and ureter. Nonobstructing calcification wit hin the left renal pelvis measuring 6 x 3 mm. Right kidney is grossly unremarkable. Stomach, bowel and peritoneum: No gastric or small bowel dilation. No abnormal wall thickening. No pa thologic free fluid. Normal appendix. Lymph nodes: No central or retroperitoneal adenopathy. Vessels: No infrarenal aortic aneurysm. Atherosclerotic vascular calcifications. Patent portal vein. PELVIS Reproductive organs: There appears to be complete uterine prolapse.. Bladder: Wall thickening. Gas within the urinary bladder, likely secondary to recent segmentation. Pelvic lymph nodes: No pelvic adenopathy by size criteria. Bones: No aggressive osseous abnormality. Degenerative changes of the spine. Other: No significant ventral or inguinal hernia. IMPRESSION: 1.Findings concerning for intracapsular hematoma involving the left kidney. 2.Moderate left hydroureteronephrosis with wall thickening and surrounding stranding. Bladder wall th ickening is present. Recommend correlation for infection. Small gas is seen within the collecting sys tem and bladder, likely secondary to instrumentation. 3.Nonobstructing calcification within the left renal pelvis measuring 6 x 3 mm. 4.There appears to be complete uterine prolapse, recommend correlation with physical exam. 5.Hepatic steatosis. Reviewed by: Beni Cervantes MD on 09/24/2023 7:30 PM PDT Approved by: Beni Cervantes MD on 09/24/2023 7:30 PM PDT Station ID: [id number]
[2023-09-24] MEDS ORDERED: cefTRIAXone 1 GM VIAL ONE (20:23)
[2023-09-24] MEDS: cefTRIAXone 1 GM in SODIUM CHLORIDE 0.9% MINIBAG 100 ML IV STA (20:25)
[2023-09-24] MEDS: ASPIRIN 325 MG TABLET PO STA (21:18)
--- NOTE | 2023-09-24 23:35 | ED Physician Documentation ---
ED Addendum - Addendum Addendum: 09/24/23 23:33 Care of patient signed out to me by [employer]IC[employer] PATENT Karen at 2300. Third troponin continues to show progressive elevation, however this is very mild. Since patient has not had marked downtrend in troponin even with treatment we will follow cardiology's recommendation and will attempt to transfer patient for both urology and cardiology evaluation. Patient has no chest pain and EKG is nonischemic. I do believe that this is likely secondary to sepsis rather than ACS. Discussed case with [facility] cardiology Dr. Hwang, who agreed that this was likely secondary to demand and did not recommend initiation of heparin at this time, but did state that a full dose aspirin could be of some benefit. In agreement with patient coming for cardiology evaluate. 0145 -patient accepted by Dr. Perez for transfer. 0730 -patient picked up by [place] [facility] for transfer to [facility]. Patient transferred in hemodynamically stable condition. 09/24/23 23:35 09/25/23 05:27
[2023-09-25 01:45] LABS: INFLUENZA A- RESP PCR PANEL NOT DETECTED; INFLUENZA B - RESP PCR PANEL NOT DETECTED; RSV- RESP PCR PANEL NOT DETECTED; SARS-CoV-2 -RESP PCR PANEL NOT DETECTED
[2023-09-25] MEDS: ASPIRIN 325 MG TABLET PO STA (01:47)
[2023-09-25 05:21] VITALS: BP 140/76; O2SAT 93
== END 2023-09-25 05:32 | disposition short-term general hospital (02) ==
LOC: EDUNIT# → ED 16:09
DX: N12 Tubulo-interstitial nephritis, not specified as acute or chronic (principal); A41.9 Sepsis, unspecified organism; N13.30 Unspecified hydronephrosis; E87.1 Hypo-osmolality and hyponatremia; R79.89 Other specified abnormal findings of blood chemistry; N81.3 Complete uterovaginal prolapse; I10 Essential (primary) hypertension; E78.00 Pure hypercholesterolemia, unspecified; E11.9 Type 2 diabetes mellitus without complications; Z79.899 Other long term (current) drug therapy; Z79.84 Long term (current) use of oral hypoglycemic drugs
CPT/HCPCS: 36415; 74177; 80053; 81001; 83605; 83690; 84484; 85025; 87040; 87086; 87637; 93005; 96361; 96365; 99285; A9270; P9612; Q9967; 51701; 81003